=== PATIENT | male | born 1980 | race Caucasian/White ===

== ENCOUNTER 2024-03-20 15:45 | Outpatient (RCR) | payer OTHER, BC, SELFPAY | END 2024-07-10 17:26 | disposition home or self-care (01) | PROVIDERS: PCP Family Medicine; Visit Provider Family Medicine | DX: M25.512 Pain in left shoulder (principal); G89.29 Other chronic pain; M77.8 Other enthesopathies, not elsewhere classified; Z51.89 Encounter for other specified aftercare | CPT/HCPCS: 97110; 97140; 97161 ==

== ENCOUNTER 2024-08-06 08:32 | Day surgery (SDC) | payer OTHER, BC, SELFPAY ==
--- NOTE | 2024-08-05 12:22 | W.ANESCHARGE ---
Anesthesia Charges Start Date/Time Anesthesia Start Date: 08/05/24 Anesthesia Start Time: 11:02 Stop Date/Time Anesthesia Stop Date: 08/05/24 Anesthesia Stop Time: 12:22 Summary Extremes of Age - Over 70 or under 1: BUS GIRL Coding CPT Codes CPT Codes: ANESTH KNEE JOINT SURGERY - 56343 ([id number]) P3 - PATIENT W/SEVERE SYS DISEASE, QK - CHANNELER RUNNER 2-4 CNCRNT ANES PROC, QX - BUS GIRL SVC W/ MD MED DIRECTION Additional Codes: Summary - Extremes of Age - Over 70 or under 1: BUS GIRL ([id number])
[2024-08-06] VITALS (16 sets, daily range): BP systolic 104–149; BP diastolic 66–92; PULSE 61–87; RESP 16; TEMP 36.1–36.9; O2SAT 95–99; BMI 21.8
[2024-08-06] MEDS: fentaNYL 100 MCG/2 ML inj IVP (08:09)
--- NOTE | 2024-08-06 08:57 | W.PM.H&PU ---
History & Physical Update History & Physical Update H&P Reviewed and patient assessed: No changes noted
[2024-08-06] MEDS: 0.9 % SODIUM CHLORIDE 500 ML 500 ML 100 ML IV ×2 (09:15→12:00)
[2024-08-06] MEDS: SODIUM CHLORIDE 0.9 % (FLUSH) 10 ML SYRINGE IVF (09:44)
[2024-08-06] MEDS: MIDAZOLAM HCL 1 MG/ML inj IVP (10:10)
--- NOTE | 2024-08-06 10:35 | SUR.PREOP ---
TIME?OUT:?1010 PT/RN/MDA?VERIFICATION?OF?SURGICAL?SITE,?PROCEDURE,?AND?CONSENT OBTAINED?PRIOR?TO?INVASIVE?PROCEDURE.
--- NOTE | 2024-08-06 10:50 | W.PM.NB ---
Nerve Block Nerve Block Time Seen by Provider: 10:14 Date Seen: 08/06/24 Type of block requested by surgeon for post-operative analgesia: supraclavicular Side: left Time out performed: Yes Verification of patient name: Yes Verification of date of : Yes Site marking: site marked Name of person performing procedure: Remy Continuous monitoring Was continuous monitoring of O2 sat, B/P, snuff box finisher, recorded every 15 minutes?: Yes Procedure Checklist: sterile prep, needles and gloves Ultrasound guided. Images saved: Yes Medications given in 5ml increments after negative aspiration: Ropivicaine %: 0.5 mL: 20 Needle gauge: 22 Precedex (mcg): 25 Patient tolerated procedure well: Yes Block Charges Block Charge (with Pro Fee): Brachial Plexus Use of Ultrasound Machine for Block: Yes- US Guidance/pain block
[2024-08-06] MEDS: EPINEPHrine 1 MG in SODIUM CHLORIDE IRRIG SOLUTION 3,000 ML 9003 MG IRRIGATION (11:31)
--- NOTE | 2024-08-06 13:08 | PM.ORPRC ---
Procedure Note Date of procedure: 08/06/24 Procedure: PREOPERATIVE DIAGNOSES: 1. Left shoulder rotator cuff tear - high-grade partial-thickness supraspinatus POSTOPERATIVE DIAGNOSES: 1. Left shoulder rotator cuff tear - high-grade partial-thickness supraspinatus NAME OF OPERATION: 1. Left shoulder arthroscopic rotator cuff repair. SURGEON: Luciano Noriega MD EDUCATION ADMINISTRATOR: Hilario Muller PA-C. Of note, a skilled assistant center manager was critical for this case to aide in patient positioning, suture manipulation, arm positioning, instrument positioning, and closure. ANESTHESIA: General plus preoperative supraclavicular block. EBL: 25 mL IMPLANTS: Arthrex 4.75 mm BioComposite SwiveLock suture anchor (x1); Arthrex 5.5 mm BioComposite corkscrew suture anchor (x1) COMPLICATIONS: None evident INDICATIONS: The patient is a pleasant, 44-year-old male who has experienced left shoulder pain that has been increasing in recent time. He relates this to work-related injury from 2021. Physical exam and imaging were consistent with a rotator cuff tear. Given their findings, as well as the weakness and pain, and inadequate response to nonoperative management, recommendation was made for surgery. FINDINGS: Exam under anesthesia revealed stable shoulder with excellent range of motion. The diagnostic arthroscopy revealed healthy chondral surfaces of the glenohumeral joint. The Subscapularis tendon was intact and with a healthy attachment. The long head of the biceps tendon was intact. The superior rotator cuff tendon was found to be torn and high-grade partial-thickness manner on the bursal side. A very thin fibers remained on the articular side. A blunt probe easily penetrated through this. The labrum was healthy without significant tearing or fraying. No loose bodies were identified within the pouch or subscapularis recess. PROCEDURE: Following a thorough discussion of risks, benefits, and alternatives, consent was obtained and the left shoulder was marked. The patient was brought to the operating room and placed supine on the operating table. Induction of anesthesia was completed after preoperative supraclavicular block was administered in preop holding. Appropriate time out was performed identifying proper patient, site, and procedure. 1 g IV Ancef was administered within 1 hour of incision preoperatively. The left upper extremity was prepped and draped in the appropriate sterile fashion using ChloraPrep prep. This was after the patient was positioned in the beach chair with their head in neutral alignment and all bony prominences well padded. The shoulder was insufflated with 20mL of normal saline via an 18g spinal needle from a posterior approach. An 11 blade skin incision allowed a blunt trochar to be inserted and diagnostic arthroscopy to be performed with the findings as noted above. After diagnostic arthroscopy, as no intra-articular pathology was evident we moved into the subacromial space. Here, a bursectomy was performed with the torpedo shaver. Thereafter, the supraspinatus bursal sided high-grade partial-thickness tear was clearly identified. The probe easily penetrated through the deeper tissues making this essentially a full-thickness tear. The margins of the tear were debrided, and the greater tuberosity was debrided with a combination of the apollo cautery and shaver after gentle decortication, it was found that the tissue had retracted posteriorly. Thus, a 5.5 mm corkscrew suture anchor was placed along the medial row adjacent to the articular cartilage. The sutures were passed with 1 limb posterior 1 limb anterior for this double loaded anchor. A suture Lasso did help was passed from the more lateral anterior direction of suture. The sutures were tied, excellent reapproximation of the tissue achieved. A small dog-ear was seen slightly more posterior, thus a FiberLink was passed through this in a luggage tag fashion. All these tails were then brought to a single lateral row anchor that was placed slightly more anterior to help with its direction of pull for the FiberLink suture. The rotator cuff showed excellent reapproximation of the greater tuberosity with good security upon probing. Prior to anchor [employer] company flatbed driver removal, the eyelet sutures were tugged on for each anchor and found that the anchor had excellent stability within the bone. The shoulder was placed through range of motion and found to be stable. The rotator cuff was re-probed and found to be stable. Instruments were removed. Excess fluid was drained, closure performed with 4-0 Monocryl and Steri-Strips. Dressings were applied. Sling was applied. The patient was awoken from anesthesia and transferred to the PACU in stable condition. A skilled assistant center manager was critical for this case to aid in patient positioning, limb positioning, skill to manipulate arthroscopic instruments and camera, suture management, patient safety, and closure. PLAN: 1. Elbow, forearm, wrist and digit range of motion of operative extremity as tolerated. 2. Encouraged ice. 3. Oxycodone for pain as needed. 4. Sling at all times except for ROM and showering. 5. Follow up with PA visit in 1-2 weeks for wound check. Initiate physical therapy following that visit for passive range of motion. Initiate active assisted range of motion at 4-6 weeks. May do pendulums now.
--- NOTE | 2024-08-06 13:23 | W.ANESCHARGE ---
Anesthesia Charges Start Date/Time Anesthesia Start Date: 08/06/24 Anesthesia Start Time: 11:31 Stop Date/Time Anesthesia Stop Date: 08/06/24 Anesthesia Stop Time: 13:26 Coding CPT Codes CPT Codes: ANESTH SURGERY OF SHOULDER - 60575 ([id number]) P1 - NORMAL HEALTHY PATIENT, QK - CAUL PULLER 2-4 CNCRNT ANES PROC, QX - CARDIAC TECHNICIAN SVAmaris W/ MED DIRECTION
--- NOTE | 2024-08-06 13:30 | W.ANESCHARGE ---
Anesthesia Charges Start Date/Time Anesthesia Start Date: 08/06/24 Anesthesia Start Time: 11:31 Stop Date/Time Anesthesia Stop Date: 08/06/24 Anesthesia Stop Time: 13:26 Coding CPT Codes CPT Codes: ANESTH SURGERY OF SHOULDER - 87945 ([id number]) QK - PREDATORY ANIMAL TRAPPER 2-4 CNCRNT ANES PROC, QX - TIRE BALANCER SVC W/ MD MED DIRECTION, P1 - NORMAL HEALTHY PATIENT
== END 2024-08-06 15:00 | disposition home or self-care (01) ==
LOC: OR 08:35
PROVIDERS: PCP Family Medicine; Visit Provider Orthopaedic Surgery Sports Medicine
PROC: (CPT 29805; principal; 2024-08-06 10:45)
DX: S46.012A Strain of muscle(s) and tendon(s) of the rotator cuff of left shoulder, initial encounter (principal); G89.18 Other acute postprocedural pain
CPT/HCPCS: 29827; 01400; 01630; 64415; 76942; 99100; C1713; J0171; J0330; J1100; J2250; J2405; J2704; J2710; J2795; J3010; J7030; L3670

== ENCOUNTER 2024-12-15 13:00 | Outpatient (RCR) | payer OTHER, BC, SELFPAY ==
--- NOTE | 2024-08-25 14:36 | PT.OPEX ---
PT [facility] Outpatient Eval PT [facility] Outpatient Eval Start: 08/25/24 10:00 Freq: Status: Active Protocol: Document 08/25/24 10:00 MARIA FERNANDA (Rec: 08/25/24 14:36 [facility] [id number]) E-signed By Janessa Silva PT Physical Therapy Outpatient Evaluation Insurance Information Insurance Name Workman's Comp Insurance Information/Comments WORK COMP Medical Diagnosis S/P LEFT RTC REPAIR W/SAD LEFT SUPRASPINATUS TEAR SUBACROMIAL BURSITIS/ IMPINGEMENT Treating Diagnosis LEFT SHOULDER PAIN LEFT SHOULDER WEAKNESS Imaging Report Information 03/31/24 MRI -SMALL HIGH GRADE (1.0CM) PARTIAL-THICKNESS BURSAL SURFACE TEAR OF SUPRASPINATUS TENDON WITH MILD TENDINOPATHY -MILD LATERAL DOWNSLOPING OF THE ACROMION (TYPE1) Subjective Subjective PATIENT REPORTS IN THE FALL OF HE HAD A 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 HE HAS EXPERIENCED AND EXACERBATION RETURNING TO THE DR. KELLER LAST FALL AND GIVEN THE OPTION OF RECEIVING A CORTISONE INJECTION AND CONTINUING WITH HIS HEP UNTIL HE IS UNABLE TO MANAGE THE SYMPTOMS AND DEFICITS. HE UNDERWENT RCR W/ SAD ON 08/06/24 AND REPORTS MIN DISCOMFORT USING PO OTC AND ICE PREDOMINATELY FOR HIS SYMPTOM MGMT. HE HAS BEEN OUT OF SLING WHEN SEATED BUT NOT SUPPORTED AND PERFORMED HIS PENDULUMS AND ELBOW WORK INCONSISTENTLY. HIS GOAL IS TO RETURN TO WORK W/O RESTRICTIONS, W/O PAIN, AND NO ISSUES GOING FORWARD Pain Comments -10/16 ANTERIOR/LATERAL LEFT SHOULDER Date of Last Physician Visit 08/14/24 Date of Next Physician Visit 09/16/24 Date of Surgery (If applicable) 08/06/24 Current Work Status [employer] Occupation [employer] Precautions Treatment Precautions/Contraindications 08/25/24: NO LIFTING, REACHING, CARRYING; SLING FOR 6 WEEKS; BEGIN PROM NOW WITH AAROM AT 4 -6 WEEKS. Therapy Limitations/Systems Review Not Limited Objective Other/Pertinent Objective SUPINE SHOULDER PROM 100/88/32 ^/28 ^@45SCAPTION ; MIN EDEMA, SCANT BRUSING, INCISION PRISTINE Functional Test Performed & Score [id number] Assessment Assessment/Impression PATIENT IS A 44YO REFERRED BY [facility] TO [facility] AND TREAT S/P RCR WITH SAD 08/06/24. PATIENT RESTRICTED TO SLING X 6 WEEKS UNLESS BATHING, DRESSING, OR PHYSICAL THERAPY AND NO LIFTING, CARRYING, OR REACHING . EDUCATED PATIENT TO THE SURGICAL INTERVENTION AND HOW HIS RESTRICTIONS AND PRECAUTIONS ALIGN WITH THE HEALING TISSUES. REVIEWED HIS RESTRICTIONS AND PRECAUTIONS ALONG WITH INITIATING HIS INITIAL HEP FOR JOINT NUTRITION, GENTLE PROM, ELBOW/ WRIST/FORARM AROM. PATIENT IS A GOOD CANDIDATE FOR SKILLED PHYSICAL THERAPY TO ADDRESS AFOREMENTIONED DEFICITS ABOVE IN ORDER TO RETURN TO ASYMPTOMATIC STATUS AND RETURN TO UNRESTRICTED MVMTS. INTERVENTION IS NECESSARY BY WAY OF THERAPEUTIC EXERCISES, MANUAL THERAPY, NEUROMUSCULAR EDUCATION, AND STABILIZATION/ PROPRIOCEPTION. PLEASE REFER TO APPROPRIATE SECTION WITHIN THIS EVALUATION FOR COMPLETE LIST OF GOALS AND PLAN OF CARE . DISCHARGE PLAN AND CRITERIA IS FOR PATIENT TO ACHIEVE THE GOALS LISTED BELOW OR UNTIL MAX POTENTIAL MET. PATIENT VERBALIZED UNDERSTANDING AND AGREEABLE TO POC, FREQ, AND GOALS ESTABLISHED. Primary Functional Limitations USE OF LEFT UE REACHING LIFTING CARRYING ADL'S WORK RELATED TASKS Plan of Care Rehabilitation Potential Good Physical Therapy Goals 1. DECREASE PAIN TO </3/10 WITH DAILY ACTIVITIES AND WITH PROGRESSION OF PHYSICAL THERAPY OVER THE NEXT 6-8 WEEKS. 2. IMPROVE L SHOULDER PROM TO WFL WITHIN 4-6 WEEKS TO PREPARE FOR RETURN TO FUNCTIONAL USE. 3. IMPROVE AROM TO WFL TO RETURN TO FUNCTIONAL USE OF LEFT SHOULDER FOR DAILY ACTIVITIES/WORK/RECREATIONAL ACTIVITIES IN THE NEXT 8-10 WEEKS. 4. IMPROVE L SHOULDER STRENGTH TO WFL IN THE NEXT 10-12 WEEKS FOR RETURN TO FULL FUNCTIONAL USE OF RIGHT SHOULDER/UE FOR DAILY ACTIVITIES/ WORK/RECREATIONAL ACTIVITIES. 5. PATIENT WILL DEMONSTRATE INDEPENDENCE WITH HIS HEP WITHING 12 WEEKS FOR PROGRESSION OF THE ABOVE GOALS , ONGOING SELF MGMT OF ANY SYMPTOMS, ONGOING PROGRESS/ IMPROVEMENTS IN ROM/STRENGTH/ FUNCTION FOR RETURN TO FULL FUNCTIONAL USE OF LUE Coordination/Communication With Referral Source,Machine Wiper ( [facility]) Treatment Plan/Direct Interventions Ice/Cold/Vasopneumatic,Joint Mobilization,Manual Therapy, Neuromuscular Re-ed,Self-Care/ Home Management,Therapeutic Activities,Therapeutic Exercises Frequency/Duration 1-2X/WK Patient Will Be Discharged From Therapy Completion of LTG(s) Evaluation Billing Untimed Code Treatment Minutes 15 PT Eval No Charge No Complexity Low Certification Information Provider Signature Required Yes Provider Signature Shows Agreement With POC & Medical Necessity Physician NPI Number Write NPI# Here Physician Comment/Change : Physician Signature & Date Requested Please Sign/Date Here
== END 2025-01-28 17:42 | disposition home or self-care (01) ==
PROVIDERS: PCP Family Medicine; Visit Provider Orthopaedic Surgery Sports Medicine
DX: Z48.89 Encounter for other specified surgical aftercare (principal); S46.012D Strain of muscle(s) and tendon(s) of the rotator cuff of left shoulder, subsequent encounter; M71.50 Other bursitis, not elsewhere classified, unspecified site; Z51.89 Encounter for other specified aftercare
CPT/HCPCS: 97110; 97112; 97140; 97161; 97535